=== PATIENT | male | born 1970 | race Two or more races ===

== ENCOUNTER 2023-04-08 04:23 | Inpatient (IN) | payer OTHER ==
[~2023-04-08] VITALS: Ht 170.2 cm; Wt 79.4 kg
[2023-04-08 04:56] LABS: BASOPHILS # (AUTO) 0.3 K/uL (0.0-0.2); BASOPHILS % (AUTO) 1.7 % (0.0-2.0); EOSINOPHILS # (AUTO) 0.1 K/uL (0.0-0.7); EOSINOPHILS % (AUTO) 0.4 % (0.0-6.0); HEMATOCRIT 32 % (39-51); HEMOGLOBIN 11.5 g/dL (13.5-17.5); LYMPHOCYTES # (AUTO) 0.7 K/uL (0.8-4.8); LYMPHOCYTES % (AUTO) 4.8 % (20.0-44.0); MEAN CORPUSCULAR HEMOGLOBIN 39 PG (26.0-33.0); MEAN CORPUSCULAR HGB CONC 36 g/dl (31.0-36.0); MEAN CORPUSCULAR VOLUME 108 fL (80-96); MONOCYTES # (AUTO) 1.2 K/uL (0.1-1.30); MONOCYTES % (AUTO) 7.7 % (2.0-12.0); NEUTROPHILS # (AUTO) 13.2 K/uL (1.8-8.9); NEUTROPHILS % (AUTO) 85.4 % (43.0-81.0); PLATELET COUNT (AUTO) 131 K/uL (150-450); RED BLOOD CELL COUNT(AUTO) 2.96 MIL/uL (4.5-6.0); RED CELL DISTRIBUTION WIDTH 15.1 % (11.5-15.0); WHITE BLOOD COUNT (AUTO) 15.5 K/uL (4.3-11.0)
[2023-04-08 05:09] LABS: CALCIUM, SERUM 8.9 mg/dL (8.5-10.1); CARBON DIOXIDE 26 mmol/L (21-32); CHLORIDE 92 mmol/L (98-107); CREATININE 0.7 mg/dL (0.6-1.3); GLUCOSE 269 mg/dL (74-106); POTASSIUM 4.4 mmol/L (3.5-5.1); SERUM AMMONIA 5 umol/L (11-32); SODIUM SERUM 125 mmol/L (136-145); UREA NITROGEN, BLOOD 11 mg/dL (7-18)
[2023-04-08 05:14] LABS: ALANINE AMINOTRANSFERASE 31 U/L (12-78); ALCOHOL, BLOOD < 3 mg/dL (0-10); ALKALINE PHOSPHATASE 211 U/L (46-116); ASPARTATE AMINOTRANSFERASE 45 U/L (15-37); BILIRUBIN,DIRECT 4.5 mg/dL (0.0-0.2); BILIRUBIN,TOTAL 7.3 mg/dL (0.2-1.0); TOTAL PROTEIN, SERUM 6.7 g/dL (6.4-8.2)
[2023-04-08 05:21] LABS: THYROID STIMULATING HORMONE 1.273 uIU/mL (0.358-3.74)
[2023-04-08 06:53] LABS: APPEARANCE,URINE SLIGHTLY CLOUDY (CLEAR); BILIRUBIN,URINE 3+ (NEGATIVE); BLOOD, URINE 2+ Ery/uL (NEGATIVE); COLOR,URINE DARK YELLOW (YELLOW); KETONES,URINE 1+ mg/dL (NEGATIVE); LEUKOCYTE ESTERASE ,URINE NEGATIVE (NEGATIVE); NITRITE, URINE POSITIVE (NEGATIVE); PROTEIN,URINE TRACE mg/dl (NEGATIVE); UGLUCOSE 1+ mg/dL (NEGATIVE)
[2023-04-08 06:57] LABS: ADD URINE CULTURE YES; BACTERIA,URINE Moderate /HPF (None Seen); SQUAMOUS EPITHELIAL CELL,UR Rare /HPF (None Seen); WBC,URINE 21-50 /HPF (0-3)
[2023-04-08 07:16] LABS: AMPHETAMINE, URINE NEGATIVE (NEGATIVE); BARBITURATE, URINE NEGATIVE (NEGATIVE); BENZODIAZEPINE, URINE NEGATIVE (NEGATIVE); CANNABINOID, URINE NEGATIVE (NEGATIVE); COCCAINE, URINE NEGATIVE (NEGATIVE); OPIATE, URINE NEGATIVE (NEGATIVE); PHENCYCLIDINE SCREEN,URINE NEGATIVE (NEGATIVE)
[2023-04-08] MEDS ORDERED: CEFTRIAXONE 1GM BAG (ER ONLY) 50 ML IV ONE (08:05)
[2023-04-08] MEDS: CEFTRIAXONE 1GM BAG (ER ONLY) 1 GM/50 ML PIGGYBACK IV ONE (08:06)
[2023-04-08] MEDS ORDERED: THIA100T88 PO (08:36)
[2023-04-08] MEDS ORDERED: MAGN400O6 PO (08:36)
[2023-04-08] MEDS ORDERED: FERR325T23 PO (08:36)
[2023-04-08] MEDS ORDERED: BISA10SU11 RC (08:36)
[2023-04-08] MEDS ORDERED: RIFA550T PO (08:36)
[2023-04-08] MEDS ORDERED: SPIR25TA6 PO (08:36)
[2023-04-08] MEDS ORDERED: ASCO-340 PO (08:36)
[2023-04-08] MEDS ORDERED: INSU100V7 SQ (08:36)
[2023-04-08] MEDS ORDERED: CRAN425C6 PO (08:36)
[2023-04-08] MEDS ORDERED: LEVO25TA9 PO (08:36)
[2023-04-08] MEDS ORDERED: MAGN400T52 PO (08:36)
[2023-04-08] MEDS ORDERED: ACET-2605 PO (08:36)
[2023-04-08] MEDS ORDERED: NA P133E RC (08:36)
[2023-04-08] MEDS ORDERED: INSU100V39 SQ ×3 (08:36)
[2023-04-08] MEDS ORDERED: LACT10SO3 PO (08:36)
[2023-04-08] MEDS ORDERED: ACET-868 PO (08:36)
[2023-04-08] MEDS ORDERED: AMIN30LI66 PO (08:36)
[2023-04-08] MEDS ORDERED: MIDO5TAB4 PO (08:36)
[2023-04-08] MEDS ORDERED: MULT-754 PO (08:36)
[2023-04-08] MEDS ORDERED: GLUC1KIT IM (08:36)
[2023-04-08] MEDS ORDERED: TAMS-12 PO (08:36)
[2023-04-08] MEDS ORDERED: LIDO30AD10 TP (08:36)
[2023-04-08] MEDS ORDERED: FURO-145 PO (08:36)
[2023-04-08] MEDS ORDERED: DOCU100T2 PO (08:36)
[2023-04-08] MEDS ORDERED: DEXT38GE12 PO (08:36)
[2023-04-08 12:00] VITALS: BP 134/84; TEMP 97.7; O2SAT 100
[2023-04-08] MEDS: ENOXAPARIN SODIUM 40 MG/0.4 ML DISP.SYRIN SQ SCH (14:00)
[2023-04-08] MEDS ORDERED: ONDANSETRON HCL/PF 4 MG/2 ML VIAL IVP PRN (14:00)
[2023-04-08] MEDS ORDERED: ACETAMINOPHEN 325 MG TABLET PO PRN (14:00)
[2023-04-08] MEDS ORDERED: Z GUARD REMEDY 4 OZ OINT TP PRN (14:00)
[2023-04-08] MEDS: IV LR 1000 ML 1,000 ML IV PRN (15:04)
[2023-04-08 16:00] VITALS: BP 135/74; TEMP 99; O2SAT 97
[2023-04-08] MEDS ORDERED: IV NS 0.9% 250 ML IV ONE (16:06)
[2023-04-08] MEDS ORDERED: IOHEXOL-300 100 ML VIAL IV ONE (16:06)
[2023-04-08] MEDS ORDERED: CT SWABBABLE VALVE TRANS SET 1 EA INFUS.SET MC ONE (16:06)
[2023-04-08] MEDS ORDERED: DEXTROSE 50%-WATER 50 ML DISP.SYRIN IV PRN (16:30)
[2023-04-08] MEDS: BLOOD SUGAR DIAGNOSTIC 1 EACH STRIP IN SCH (17:00)
[2023-04-08] MEDS: RIFAXIMIN 550 MG TABLET PO SCH (17:25)
[2023-04-08] MEDS: MIDODRINE HCL (5MG) 5 MG TABLET PO SCH (17:25)
[2023-04-08 20:00] VITALS: BP 127/81; TEMP 98.2; O2SAT 96
[2023-04-08] MEDS: CEFTRIAXONE 1 G in IV D5W 50 ML IV SCH (20:42)
[2023-04-08 20:49] VITALS: BP 127/81; TEMP 98.6; O2SAT 96
[2023-04-08] MEDS: INSULIN REGULAR, HUMAN 100 UNIT/ML 3 ML VIAL SQ PRN (21:54)
[2023-04-08] MEDS: TAMSULOSIN 0.4 MG CAP.SR.24H PO SCH (22:00)
[2023-04-08] MEDS: MAGNESIUM OXIDE 400 MG TABLET PO SCH (22:00)
[2023-04-09] VITALS: BP 126/83; TEMP 99.1; O2SAT 100
[2023-04-09 04:18] VITALS: BP 130/84; TEMP 99.1; O2SAT 96
[2023-04-09 07:00] VITALS: BP 121/71; TEMP 97.5; O2SAT 95
[2023-04-09 07:04] LABS: BASOPHILS % (AUTO) 0.3 % (0.0-2.0); EOSINOPHILS % (AUTO) 0.2 % (0.0-6.0); HEMATOCRIT 31 % (39-51); LYMPHOCYTES # (AUTO) 0.8 K/uL (0.8-4.8); LYMPHOCYTES % (AUTO) 5.1 % (20.0-44.0); MEAN CORPUSCULAR HEMOGLOBIN 39 PG (26.0-33.0); MEAN CORPUSCULAR HGB CONC 36 g/dl (31.0-36.0); MEAN CORPUSCULAR VOLUME 109 fL (80-96); MONOCYTES # (AUTO) 1.7 K/uL (0.1-1.30); MONOCYTES % (AUTO) 11.1 % (2.0-12.0); NEUTROPHILS # (AUTO) 12.7 K/uL (1.8-8.9); NEUTROPHILS % (AUTO) 83.3 % (43.0-81.0); PLATELET COUNT (AUTO) 139 K/uL (150-450); RED BLOOD CELL COUNT(AUTO) 2.81 MIL/uL (4.5-6.0); RED CELL DISTRIBUTION WIDTH 15.7 % (11.5-15.0); WHITE BLOOD COUNT (AUTO) 15.2 K/uL (4.3-11.0)
[2023-04-09 07:46] LABS: ALBUMIN 1.8 g/dL (3.4-5.0); BILIRUBIN,TOTAL 7.7 mg/dL (0.2-1.0); CALCIUM, SERUM 8.9 mg/dL (8.5-10.1); CREATININE 0.5 mg/dL (0.6-1.3); MAGNESIUM 1.7 mg/dL (1.8-2.4); PHOSPHORUS 2.1 mg/dL (2.5-4.9); POTASSIUM 4.1 mmol/L (3.5-5.1); TOTAL PROTEIN, SERUM 6.2 g/dL (6.4-8.2)
[2023-04-09] MEDS: PANTOPRAZOLE 40 MG VIAL IV SCH (08:20)
[2023-04-09] MEDS: LACTULOSE 10 G/15 ML UDC (PYXIS) PO SCH (09:00)
[2023-04-09] MEDS: THIAMINE HCL 100 MG TABLET PO SCH (09:00)
[2023-04-09] MEDS: FERROUS SULFATE (325 MG) 325 MG/TAB TABLET PO SCH (09:00)
[2023-04-09] MEDS: LEVOTHYROXINE SODIUM 25 MCG TABLET PO SCH (09:00)
[2023-04-09] MEDS: SPIRONOLACTONE 25 MG TABLET PO SCH (09:00)
[2023-04-09] MEDS: Sodium Phosphate 15 MMOL in IV NS 0.9% 245 ML IV ONE (16:01)
[2023-04-10] VITALS (13 sets, daily range): BP systolic 35–114; BP diastolic 24–65; TEMP 98–98.7; O2SAT 97–100
[2023-04-10 07:22] LABS: CREATININE 0.6 mg/dL (0.6-1.3); MAGNESIUM 1.8 mg/dL (1.8-2.4); PHOSPHORUS 2.5 mg/dL (2.5-4.9); POTASSIUM 4.3 mmol/L (3.5-5.1)
[2023-04-10 07:46] LABS: THYROID STIMULATING HORMONE 1.815 uIU/mL (0.358-3.74); URIC ACID 1.9 mg/dL (2.6-7.2)
[2023-04-10 12:40] LABS: INR 1.65 (0.91-1.10); PROTHROMBIN TIME 16.9 SECS (9.2-11.1)
[2023-04-10] MEDS ORDERED: VITAL AF 1.2 1,000 ML BOTTLE GT PRN (17:00)
[2023-04-10] MEDS ORDERED: ACETAMINOPHEN 650 MG/20.3 ML UDC GT PRN (17:30)
[2023-04-10] MEDS ORDERED: EPINEPHRINE (1:10,000) SYRINGE 1 MG/10 ML DISP.SYRIN IVP ONE (19:28)
[2023-04-10] MEDS ORDERED: SODIUM BICARBONATE SYR 50 MEQ/50 ML DISP.SYRIN IV ONE (19:28)
[2023-04-10] MEDS: PHENYLEPHRINE 50 MG in IV NS 0.9% 245 ML IV PRN (20:23)
[2023-04-10] MEDS ORDERED: NOREPINEPHRINE 8 MG in IV D5W 242 ML IV PRN (21:00)
[2023-04-10] MEDS ORDERED: PROPOFOL 100 ML IV PRN (21:00)
[2023-04-10 21:05] LABS: ABG BASE EXCESS -12.9 mmol/L; ABG OXYGEN SATURATION 99.5 % (92.0-98.5); ABG PCO2 35.5 mmHg (35.0-45.0); ABG PH 7.212 (7.350-7.450); ABG PO2 298.1 mmHg (75.0-100.0); ABG TOTAL HEMOGLOBIN 13.4 G/dL (13.5-18.0); AaDO2 379.4 mmHg; COHb 0.9 % (0.5-1.5); MetHb 0.3 % (0.0-1.5); O2Hb 98.3 % (94.0-97.0); SITE, ABG Right Radial
[2023-04-10 21:12] LABS: BASOPHILS % (AUTO) 0.2 % (0.0-2.0); EOSINOPHILS % (AUTO) 0.2 % (0.0-6.0); HEMATOCRIT 27 % (39-51); HEMOGLOBIN 8.8 g/dL (13.5-17.5); LYMPHOCYTES # (AUTO) 0.5 K/uL (0.8-4.8); LYMPHOCYTES % (AUTO) 3.6 % (20.0-44.0); MEAN CORPUSCULAR HEMOGLOBIN 40 PG (26.0-33.0); MEAN CORPUSCULAR HGB CONC 33 g/dl (31.0-36.0); MEAN CORPUSCULAR VOLUME 121 fL (80-96); MONOCYTES # (AUTO) 0.5 K/uL (0.1-1.30); MONOCYTES % (AUTO) 3.4 % (2.0-12.0); NEUTROPHILS # (AUTO) 12.6 K/uL (1.8-8.9); NEUTROPHILS % (AUTO) 92.6 % (43.0-81.0); PLATELET COUNT (AUTO) 131 K/uL (150-450); RED BLOOD CELL COUNT(AUTO) 2.23 MIL/uL (4.5-6.0); RED CELL DISTRIBUTION WIDTH 17.9 % (11.5-15.0); WHITE BLOOD COUNT (AUTO) 13.6 K/uL (4.3-11.0)
[2023-04-10] MEDS: LR IV STA (21:13)
[2023-04-10] MEDS: NOREPINEPHRINE 8 MG in IV D5W 242 ML IV PRN (21:23)
[2023-04-10 21:28] LABS: CALCIUM, SERUM 8.7 mg/dL (8.5-10.1); CREATININE 1.1 mg/dL (0.6-1.3); POTASSIUM 4.8 mmol/L (3.5-5.1)
[2023-04-10 21:33] LABS: LACTIC ACID 13.3 mmol/L (0.4-2.0)
[2023-04-10 21:36] LABS: BAND % (MANUAL) 2 % (0.0-5.0); LYMPHOCYTES % (MANUAL) 3 % (16-48); MONOCYTES % (MANUAL) 2 % (0-11.0); NEUTROPHILS % (MANUAL) 93 (42-76)
[2023-04-10 21:37] LABS: ANISOCYTOSIS 1+; BILIRUBIN,TOTAL 6.4 mg/dL (0.2-1.0); MAGNESIUM 1.9 mg/dL (1.8-2.4); PHOSPHORUS 6.4 mg/dL (2.5-4.9); PLATELET ESTIMATE ADEQUATE
[2023-04-10 21:40] LABS: ALBUMIN 1.3 g/dL (3.4-5.0)
[2023-04-10] MEDS: SODIUM BICARBONATE SYR 50 MEQ/50 ML DISP.SYRIN IV ONE (21:59)
[2023-04-10] MEDS: TAMSULOSIN 0.4 MG CAP.SR.24H GT SCH (22:00)
[2023-04-10] MEDS: MAGNESIUM OXIDE 400 MG TABLET GT SCH (22:00)
[2023-04-10] MEDS ORDERED: IOHEXOL-350 100 ML VIAL IV ONE (22:26)
[2023-04-10] MEDS ORDERED: IV NS 0.9% 250 ML IV ONE (22:26)
[2023-04-10] MEDS ORDERED: CT SWABBABLE VALVE TRANS SET 1 EA INFUS.SET MC ONE (22:26)
[2023-04-10] MEDS ORDERED: LEVETIRACETAM (500MG) 500 MG/5 ML VIAL IV ONE ×2 (23:11→23:37)
[2023-04-10] MEDS: LEVETIRACETAM (500MG) 1,000 MG in IV NS 0.9% 90 ML IV ONE (23:48)
[2023-04-11] VITALS (51 sets, daily range): BP systolic 47–126; BP diastolic 30–71; TEMP 97.3–97.6; O2SAT 95–100
[2023-04-11] MEDS: MANNITOL 12.5 GM/50 ML VIAL IV SCH
[2023-04-11] MEDS: MANNITOL 12.5 GM/50 ML VIAL IV STA (00:28)
[2023-04-11 00:32] LABS: BILIRUBIN,DIRECT 4.3 mg/dL (0.0-0.2)
[2023-04-11] MEDS: PHYTONADIONE INJ 10 MG/1 ML AMPUL ONE (00:47)
[2023-04-11] MEDS: PHYTONADIONE INJ 10 MG in IV NS 0.9% 50 ML IV SCH (00:57)
[2023-04-11 01:26] LABS: LACTIC ACID REFLEX 18.7 mmol/L (0.4-1.9)
[2023-04-11 05:04] LABS: BASOPHILS % (AUTO) 0.1 % (0.0-2.0); EOSINOPHILS % (AUTO) 0.1 % (0.0-6.0); HEMATOCRIT 35 % (39-51); HEMOGLOBIN 11.1 g/dL (13.5-17.5); LYMPHOCYTES # (AUTO) 1.1 K/uL (0.8-4.8); LYMPHOCYTES % (AUTO) 3.9 % (20.0-44.0); MEAN CORPUSCULAR HEMOGLOBIN 39 PG (26.0-33.0); MEAN CORPUSCULAR HGB CONC 32 g/dl (31.0-36.0); MEAN CORPUSCULAR VOLUME 124 fL (80-96); MONOCYTES # (AUTO) 0.8 K/uL (0.1-1.30); MONOCYTES % (AUTO) 2.8 % (2.0-12.0); NEUTROPHILS % (AUTO) 93.1 % (43.0-81.0); PLATELET COUNT (AUTO) 162 K/uL (150-450); RED BLOOD CELL COUNT(AUTO) 2.82 MIL/uL (4.5-6.0); RED CELL DISTRIBUTION WIDTH 18.8 % (11.5-15.0); WHITE BLOOD COUNT (AUTO) 27.9 K/uL (4.3-11.0)
[2023-04-11 05:17] LABS: CALCIUM, SERUM 9.1 mg/dL (8.5-10.1); CREATININE 1.7 mg/dL (0.6-1.3); MAGNESIUM 2.1 mg/dL (1.8-2.4); POTASSIUM 5.2 mmol/L (3.5-5.1)
[2023-04-11] MEDS ORDERED: Sodium Bicarbonate 150 MEQ in IV D5W 1,000 ML IV SCH (06:00)
[2023-04-11] MEDS: NOREPINEPHRINE 8MG/250ML RTU 250 ML IV ONE (06:19)
[2023-04-11] MEDS ORDERED: BLOOD SUGAR DIAGNOSTIC 1 EACH STRIP IN SCH (07:30)
[2023-04-11] MEDS: Sodium Bicarbonate 150 MEQ in IV D5W 1,000 ML IV SCH (07:33)
[2023-04-11] MEDS: MANNITOL 25 GM in IV D5W 50 ML IV SCH (08:21)
[2023-04-11] MEDS: NOREPINEPHRINE 32 MG in IV NS 0.9% 250 ML IV PRN (08:21)
[2023-04-11] MEDS: THIAMINE HCL 100 MG TABLET GT SCH (10:00)
[2023-04-11] MEDS: LACTULOSE 10 G/15 ML UDC (PYXIS) GT SCH (10:00)
[2023-04-11] MEDS: LEVOTHYROXINE SODIUM 25 MCG TABLET GT SCH (10:00)
[2023-04-11] MEDS: FERROUS SULFATE (325 MG) 325 MG/TAB TABLET GT SCH (10:01)
[2023-04-11] MEDS: SPIRONOLACTONE 25 MG TABLET GT SCH (10:01)
[2023-04-11] MEDS: MIDODRINE HCL (5MG) 5 MG TABLET GT SCH (10:01)
[2023-04-11] MEDS: RIFAXIMIN 550 MG TABLET GT SCH (10:01)
[2023-04-11] MEDS: LEVETIRACETAM (500MG) 500 MG in IV NS 0.9% 100 ML IV SCH (11:08)
[2023-04-11] MEDS: BLOOD SUGAR DIAGNOSTIC 1 EACH STRIP IN SCH (11:43)
[2023-04-11] MEDS ORDERED: PHENYLEPHRINE 100 MG in IV NS 0.9% 240 ML IV PRN (13:00)
== END 2023-04-11 14:14 | DRG 280 ==
LOC: ER 04:26 → TELE 10:07 → MED 04-10 → ICU 04-10 19:42
PROVIDERS: ADMIT Nurse Practitioner Acute Care; ATTEND Nurse Practitioner Acute Care
PROC: 5A1935Z Respiratory Ventilation, Less than 24 Consecutive Hours (ICD-10-PCS; principal; 2023-04-10)
PROC: 0BH17EZ Insertion of Endotracheal Airway into Trachea, Via Natural or Artificial Opening (ICD-10-PCS; 2023-04-10)
PROC: 5A2204Z Restoration of Cardiac Rhythm, Single (ICD-10-PCS; 2023-04-10)
PROC: 05HY33Z Insertion of Infusion Device into Upper Vein, Percutaneous Approach (ICD-10-PCS; 2023-04-11)
DX: K70.31 Alcoholic cirrhosis of liver with ascites (principal); G93.6 Cerebral edema; I60.5 Nontraumatic subarachnoid hemorrhage from vertebral artery; J69.0 Pneumonitis due to inhalation of food and vomit; G93.41 Metabolic encephalopathy; J96.90 Respiratory failure, unspecified, unspecified whether with hypoxia or hypercapnia; S36.119A Unspecified injury of liver, initial encounter; E44.0 Moderate protein-calorie malnutrition; I67.4 Hypertensive encephalopathy; R57.9 Shock, unspecified; N17.9 Acute kidney failure, unspecified; D69.6 Thrombocytopenia, unspecified; E87.1 Hypo-osmolality and hyponatremia; E88.09 Other disorders of plasma-protein metabolism, not elsewhere classified; E11.9 Type 2 diabetes mellitus without complications; D53.9 Nutritional anemia, unspecified; E03.9 Hypothyroidism, unspecified; I10 Essential (primary) hypertension; N39.0 Urinary tract infection, site not specified; Z79.4 Long term (current) use of insulin; Z79.890 Hormone replacement therapy; Z79.899 Other long term (current) drug therapy; X58.XXXA Exposure to other specified factors, initial encounter; Y92.9 Unspecified place or not applicable; R04.0 Epistaxis; R13.10 Dysphagia, unspecified; E80.6 Other disorders of bilirubin metabolism; F10.20 Alcohol dependence, uncomplicated; Y90.0 Blood alcohol level of less than 20 mg/100 ml; G91.9 Hydrocephalus, unspecified; Z66 Do not resuscitate
CPT/HCPCS: 31720; 36415; 36600; 70450-TC; 70496-TC; 70498-TC; 71045-TC; 74178; 80048-TC; 80053-TC; 80061-TC; 80076-TC; 81001; 82140-TC; 82248-TC; 82607-TC; 82803-TC; 82962-TC; 83605-TC; 83735-TC; 83935-TC; 84100-TC; 84443-TC; 84484-TC; 84550-TC; 85025-TC; 85610-TC; 86803; 86850-TC; 87086-TC; 92526; 92611-TC; 92950-TC; 93307-TC; 93970-TC; 94002-TC; 94003-TC; 94799-TC; 99082-TC; A4223; A9563; C9113; G0378; G0480; J0171; J0696; J1650; J1815; J1953; J2150; J3430; J3490; J7030; J7050; J7060; J7070; J7120; Q9967